=== PATIENT | female | born 1955 | race Caucasian/White ===

== ENCOUNTER 2017-03-03 10:14 | Observation (INO) | payer BC ==
[2017-03-03 10:27] VITALS: BMI 31.5
[2017-03-03 11:27] LABS: URINE APPEARANCE SLCLOUDY; URINE BILIRUBIN NEGATIVE (NEGATIVE); URINE BLOOD NEGATIVE (NEGATIVE); URINE COLOR STRAW; URINE GLUCOSE (UA) NEGATIVE (NEGATIVE); URINE KETONE NEGATIVE (NEGATIVE); URINE NITRITE NEGATIVE (NEGATIVE); URINE PROTEIN NEGATIVE (NEGATIVE); URINE UROBILINOGEN NEGATIVE E.U./dl (0.2-1.0)
--- NOTE | 2017-03-03 11:29 | PDOC ---
History of Present Illness - General History Source: Patient Exam Limitations: No Limitations - History of Present Illness Initial Comments: 03/03/17 12:12 The patient is a 61 year old female with a significant past medical history of TIA (20 years ago due to oral control), hypertension, and hypercholesterolemia, presenting to the Emergency Department with intermittent weakness for 5 days. The patient admits that she was moving out of her apartment on Tuesday, and started experiencing weakness which she describes as a heaviness to her left leg. She admits that the weakness has been progressively worse over the past 5 days. She states that his morning she started experiencing a heaviness to her left arm as well as tingling, pins and needles, to her left foot. She states that the tingling has resolved but that she still feels a heaviness to her left leg. She admits she is also walking with a limp. She also admits that her blood pressure was high this morning, though she is compliant with her medication. The patient denies headache, dizziness, or visual changes. Patient denies slurred speech. Patient denies nausea, vomiting, and diarrhea. Patient denies fever, cough, or chills. Patient denies neck pain, or back pain. PCP: Dr. Neal <Halima Soler - Last Filed: 03/03/17 14:27> - General History Source: Patient Exam Limitations: No Limitations <Juan Dudley - Last Filed: 03/03/17 14:51> - General Chief Complaint: Weakness Stated Complaint: leg weakness x 2 days Time Seen by Provider: 03/03/17 10:38 Past History <Halima Soler - Last Filed: 03/03/17 14:27> - Past Medical History Anemia: No Asthma: No Cancer: No Cardiac Disorders: No CVA: No COPD: No (SARCOIDOSIS) CHF: No Dementia: No Diabetes: No GI Disorders: Yes (COLON POLYPS, DIVERTICULOSIS, GERD, HIATAL HERNIA) Disorders: No HTN: Yes Hypercholesterolemia: Yes Liver Disease: No Seizures: No Thyroid Disease: No - Surgical History Cardiac Surgery: No Cholecystectomy: Yes (LAPAROSCOPIC) Lung Surgery: No Neurologic Surgery: No - Psycho/Social/Smoking Cessation Hx Anxiety: No Suicidal Ideation: No Smoking History: Never smoked Have you smoked in the past 12 months: No Information on smoking cessation initiated: No Hx Alcohol Use: No Drug/Substance Use Hx: No Substance Use Type: None Hx Substance Use Treatment: No <Juan Dudley - Last Filed: 03/03/17 14:51> - Past Medical History Allergies/Adverse Reactions: Allergies Allergy/AdvReac Type Severity Reaction Status Date / Time No Known Allergies Allergy Verified 03/03/17 10:28 Home Medications: Ambulatory Orders Atorvastatin Ca [Lipitor] 10 mg PO DAILY 10/23/15 Olmesartan Medoxomil [Benicar -] 20 mg PO DAILY 08/18/16 Review of Systems - Review of Systems Able to Perform ROS?: Yes Comments:: 03/03/17 12:12 CONSTITUTIONAL: Reported: + weakness, + high blood pressure No reported: Fever, Chills, Diaphoresis, Malaise, Loss of Appetite HEENT: No reported: Rhinorrhea, Nasal Congestion, Throat Pain, Throat Swelling, Difficulty Swallowing, Mouth Swelling, Ear Pain, Eye Pain, Visual Changes CARDIOVASCULAR: No reported: Chest Pain, Syncope, Palpitations, Irregular Heart Rate, Lightheadedness, Peripheral Edema RESPIRATORY: No reported: Cough, Shortness of Breath, SOB with Exertion, Orthopnea, Wheezing , Stridor, Hemoptysis GASTROINTESTINAL: No reported: Abdominal pain, Abdominal Distension, Nausea, Vomiting, Diarrhea, Constipation, Melena, Hematochezia GENITOURINARY: No reported: Dysuria, Frequency, Urgency, Hesitancy, Flank Pain, Genital Pain MUSCULOSKELETAL: No reported: Myalgia, Arthralgia, Joint Swelling, Back pain, Neck Pain SKIN: No reported: Rash, Itching, Pallor HEMATOLOGIC/IMMUNOLOGIC: No reported: Easy Bleeding, Easy Bruising, Lymphadenopathy, Frequent infections ENDOCRINE: No reported: Unexplained Weight Gain, Unexplained Weight Loss, Heat Intolerance , Cold Intolerance NEUROLOGIC: Reported: + weakness heaviness to left leg, + heaviness to left arm (resolved), + tingling to left foot (resolved) No reported: Headache, Vertigo, Lightheadedness, Seizure, Mental Status Changes , Incontinence PSYCHIATRIC: No reported: Anxiety, Depression <Halima Soler - Last Filed: 03/03/17 14:27> *Physical Exam - Vital Signs Last Vital Signs Temp Pulse Resp BP Pulse Ox 98.4 F 72 18 148/74 100 03/03/17 10:17 03/03/17 10:17 03/03/17 10:17 03/03/17 10:17 03/03/17 10:17 - Physical Exam Comments: 03/03/17 12:12 GENERAL: The patient is awake, alert, and fully oriented, Nontoxic - in no acute distress. HEAD: Normocephalic, atraumatic. EYES: extraocular movements intact, sclera anicteric, conjunctiva clear. ENT: Normal voice, Moist mucous membranes. NECK: Normal range of motion, supple LUNGS: Breath sounds equal, clear to auscultation bilaterally. No wheezes, no rhonchi, no rales. HEART: Regular rate and rhythm, normal S1 and S2 without murmur, rub or gallop. ABDOMEN: Soft, nontender, normoactive bowel sounds. No guarding, no rebound. . No CVA tenderness EXTREMITIES: Normal range of motion, no edema. No cords, erythema, or tenderness. PSYCH: Normal mood, normal affect. SKIN: Warm, Dry, normal turgor, NEURO: Mental status: The patient is oriented x3. Cranial nerves: Cranial nerves II through XII are intact Motor: The upper extremities are 5 over 5 in all muscle groups. The lower extremities are 5 over 5 in RLE, 5- on RLE (+drift) Sensation: Sensation is intact to light touch throughout. romberg negative Cerebellar: Ezgpeh-dcmkbl-ldie is normal in both upper extremities. Heel-knee- norris is normal in both lower extremities. rapid alternating movements are normal. Reflexes: 2+ and symmetric in the upper and lower extremities. Gait: abnormal gait <Halima Soler - Last Filed: 03/03/17 14:27> - Vital Signs Last Vital Signs Temp Pulse Resp BP Pulse Ox 98.4 F 72 18 148/74 100 03/03/17 10:17 03/03/17 10:17 03/03/17 10:17 03/03/17 10:17 03/03/17 10:17 <Juan Dudley - Last Filed: 03/03/17 14:51> Heart Score/ECG Review - ECG Impressions Comment:: 03/03/17 11:43 Twelve-lead EKG was performed and reviewed by me. There is normal sinus rhythm with a normal rate. rate of 62 The axis is normal. The intervals are normal. There is normal R wave progression There are no ST or T wave abnormalities. Impression: Normal twelve-lead EKG <Juan Dudley - Last Filed: 03/03/17 14:51> ED Treatment Course - LABORATORY CBC & Chemistry Diagram: 03/03/17 11:08 03/03/17 11:08 - ADDITIONAL ORDERS Additional order review: Laboratory Results 03/03/17 11:11 Urine Color Straw Urine Appearance Slcloudy Urine pH 6.0 Urine Protein Negative Urine Glucose (UA) Negative Urine Ketones Negative Urine Blood Negative Urine Nitrite Negative Urine Bilirubin Negative Urine Urobilinogen Negative Ur Leukocyte Esterase 2+ H Urine RBC 3 Urine WBC 8 Ur Epithelial Cells Moderate Urine Bacteria Rare Urine Mucus Rare 03/03/17 11:08 RBC 4.17 MCV 93.8 MCHC 34.5 RDW 13.1 MPV 7.9 Neutrophils % 72.2 D Lymphocytes % 19.6 D Monocytes % 5.7 Eosinophils % 1.8 Basophils % 0.7 - RADIOLOGY Radiology Studies Ordered: 03/03/17 13:33 Chest XRay As reviewed by Dr. Christian Duran IMPRESSION: No evidence of active pulmonary disease. 03/03/17 13:[address] As reviewed by Dr. Christian Duran IMPRESSION: No evidence of acute intracranial hemorrhage, edema, midline shift, mass effect, or skull fracture. No CT evidence of acute territorial infarction. <Halima Soler - Last Filed: 03/03/17 14:27> - LABORATORY CBC & Chemistry Diagram: 03/03/17 11:08 03/03/17 11:08 - RADIOLOGY Radiology Studies Ordered: Category Date Time Status HEAD CT WITHOUT CONTRAST [CT] Stat CT Scan 03/03/17 11:06 Ordered CHEST X-RAY PORTABLE* [RAD] Stat Radiology 03/03/17 11:07 Taken <Juan Dudley - Last Filed: 03/03/17 14:51> Medical Decision Making - Medical Decision Making 03/03/17 13:38 Dr. Lerma was called at his office at 1:38. Awaiting call back. 03/03/17 14:27 Dr. Lerma returned call and spoke to Dr. Dudley about the patient's care. <Halima Soler - Last Filed: 03/03/17 14:27> - Medical Decision Making 03/03/17 11:27 61y F hx of htn, hl, hx oF TIA in remote past presents with 4 days of L leg numbness/tingling and 'heaviness', and today noted to have some heaviness of her L arm. ON exam the pt noted to have drift of her L leg but otherwise intact exam. NIHSS = 1. exam otherwise unremarkable vitals normal suspect possible small cva will ck labs, ct head will discuss w/ neuro A portion of this note was documented by scribe services under my direction. I have reviewed the details of the note, within reason, and agree with the documentation with the following case summary and management plan written by me 03/03/17 14:[address] reviewed negative pt given ASA case dw dr. Lerma (neuro) agree with admisino for further management Will admit to the hospital service (covering dr. Mason) 03/03/17 14:34 03/03/17 14:51 case dw [employer] Meagan agree with admission for further management will admit to stroke unit under dr. mcpherson service Case discussed in detail with admitting physician including history, physical exam and ancillary studies. Admitting physician has assumed care for the patient, will follow all pending diagnostics and will complete the evaluation and treatment. <Juan Dudley - Last Filed: 03/03/17 14:51> *DC/Admit/Observation/Transfer - Attestations Scribe Attestion: 03/03/17 12:13 Documentation prepared by Halima Soler, acting as medical front desk specialist for Juan Dudley MD. <Halima Soler - Last Filed: 03/03/17 14:27> - Discharge Dispostion Admit: Yes <Juan Dudley - Last Filed: 03/03/17 14:51> Diagnosis at time of Disposition: Cerebrovascular accident (CVA) Qualifiers: CVA mechanism: unspecified Qualified Code(s): I63.9 - Cerebral infarction, unspecified - Discharge Dispostion Condition at time of disposition: Guarded - Referrals Referrals: Ted Neal MD [Primary Care Provider] - NIH Stroke Scale - Last Known Well Date/Time & Onset Date Last Known Well: 02/26/17 Time Last Known Well: 12:00 - Initial Evaluation Level of consciousness: Alert Ask patient the month and their age: Answers both correctly Ask patient to open & close eyes; make fist and let go: Obeys both correctly Best gaze (horizontal eye movement): Normal Visual field testing: No visual field loss Facial paresis (Show teeth/raise eyebrows/close eyes tight): Normal symmetrical movement Motor Function: Left Arm: Normal Motor Function: Right Arm: Normal (extends arm 90 (or 45) degrees for 10 seconds without drift Motor Function: Left Leg: Drift Motor Function: Right Leg: Normal (extends leg 30 degrees for 5 seconds without drift) Limb Ataxia: No ataxia Sensory(Use pinprick test arms,legs,trunk,face/side to side): Normal Best language (Describe picture, name items, read sentences): No Aphasia Dysarthria (read several words): Normal articulation Extinction and Inattention: No abnormality - Total Score NIH Stroke Scale Score: 1 <Juan Dudley - Last Filed: 03/03/17 14:51> tPA Exclusion Checklist 0-3hr - Time Elapsed Date last known well: 02/26/17 Time last known well: 12:00 Elaspsed time: 5 Day(s) and 2 Hour(s) and 50 Minutes - Thrombolytic Therapy Candidate Is the patient eligible for Thrombolytic Therapy?: No - Ineligibility reason(s) Reasons No tPA given: Outside of window - delayed arrival <Juan Dudley - Last Filed: 03/03/17 14:51>
[2017-03-03 11:37] LABS: URINE LEUK ESTERASE 2+ (NEGATIVE)
[2017-03-03 11:43] LABS: BASOPHIL 0.7 % (0-2.0); EOSINOPHIL 1.8 % (0-4.5); MCH 32.3 pg (25.7-33.7); MCHC 34.5 g/dl (32.0-36.0); MEAN CELL VOLUME 93.8 fl (80-96); MEAN PLT VOLUME 7.9 fl (7.5-11.1); NEUTROPHILS 72.2 % (42.8-82.8); PLATELET COUNT 228 K/MM3 (134-434); RDW 13.1 % (11.6-15.6); WHITE BLOOD COUNT 8.2 K/mm3 (4.0-10.0)
[2017-03-03 11:48] LABS: URINE BACTERIA RARE /hpf (NONE SEEN); URINE MUCUS RARE; URINE RBC 3 /hpf (0-3); URINE WBC 8 /hpf (3-5)
[2017-03-03 12:02] LABS: INR 1.05 (0.82-1.09); PROTHROMBIN TIME (PATIENT) 11.6 SEC (9.98-11.88)
[2017-03-03 12:08] LABS: ALBUMIN 3.9 g/dl (3.4-5.0); ANION GAP 9 (8-16); BILIRUBIN,TOTAL 0.6 mg/dL (0.2-1.0); CALCIUM 9.2 mg/dL (8.5-10.1); CO2 27 mmol/L (21-32); COCKROFT - GAULT 74.205; CREATININE 0.9 mg/dL (0.55-1.02); GLUCOSE,RANDOM 103 mg/dL (74-106); MAGNESIUM 2.1 mg/dL (1.8-2.4); SGOT/AST 32 U/L (15-37); SGPT/ALT 36 U/L (12-78); TOT PROT 7.5 g/dl (6.4-8.2)
[2017-03-03 12:09] LABS: ALK PHOS 64 U/L (45-117)
[2017-03-03] MEDS ORDERED: ASPIRIN 81 MG CHEWABLE TABLETS PO ONE (13:35)
[2017-03-03] MEDS ORDERED: ASPIRIN 81 MG CHEWABLE TABLETS ONE (13:40)
--- NOTE | 2017-03-03 15:31 | HP ---
Admitting History and Physical - Primary Care Physician PCP: Ted Neal - Admission Chief Complaint: Left upper and lower extremity weakness History of Present Illness: HPI: This 61 year old female with history of HTN, HLD, TIA 20 years ago presented to the ED with worsening LLE weakness and new onset LUE weakness, heaviness and L foot numbness. Patient reports this past weekend she was moving and stressed. On Tuesday she started feeling nasal congestion and took mucinex 600mg. Two days later she experienced LLE weakness. Today, while at work the weakness in her LLE increased and she started feeling LUE weakness and heaviness. She denies unstable gait, leg buckling, burning, tingling. She does admit to stopping her ASA recently after hearing a news briefing it doesn't really help. 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 sob, CP, nausea, vomiting, FERRER, dizziness, blurry vision. History Source: Patient Limitations to Obtaining History: No Limitations - Past Medical History [employer]: Yes: TIA Cardiovascular: Yes: HTN, Hyperlipdemia - Smoking History Smoking history: Never smoked Have you smoked in the past 12 months: No - Alcohol/Substance Use Hx Alcohol Use: No History of Substance Use: reports: None - Social History Usual Living Arrangement: Yes: With Spouse ADL: Independent Occupation: Works in school Home Medications - Allergies Allergies/Adverse Reactions: Allergies Allergy/AdvReac Type Severity Reaction Status Date / Time No Known Allergies Allergy Verified 03/03/17 10:28 - Home Medications Home Medications: Ambulatory Orders Atorvastatin Ca [Lipitor] 10 mg PO DAILY 10/23/15 Olmesartan Medoxomil [Benicar -] 20 mg PO DAILY 08/18/16 Review of Systems - Review of Systems Constitutional: reports: No Symptoms Eyes: reports: No Symptoms HENT: reports: No Symptoms Neck: reports: No Symptoms Cardiovascular: reports: No Symptoms Respiratory: reports: No Symptoms Gastrointestinal: reports: No Symptoms Genitourinary: reports: No Symptoms Breasts: reports: No Symptoms Reported Musculoskeletal: reports: No Symptoms Integumentary: reports: No Symptoms Neurological: reports: Numbness (L foot), Weakness (Left upper and lower extremity) Hematology/Lymphatic: reports: No Symptoms Psychiatric: reports: No Symptoms Physical Examination Vital Signs: Vital Signs Temperature 98.4 F 03/03/17 10:17 Pulse Rate 72 03/03/17 10:17 Respiratory Rate 18 03/03/17 10:17 Blood Pressure 148/74 03/03/17 10:17 O2 Sat by Pulse Oximetry (%) 100 03/03/17 10:17 Constitutional: Yes: Well Nourished, Calm Eyes: Yes: Conjunctiva Clear HENT: Yes: Atraumatic Neck: Yes: Supple Cardiovascular: Yes: Regular Rate and Rhythm, S1, S2 Respiratory: Yes: Regular, CTA Bilaterally Gastrointestinal: Yes: Normal Bowel Sounds, Soft Renal/: Yes: WNL Musculoskeletal: Yes: Muscle Weakness (LUE, LLE) Edema: Yes Edema: LLE: Trace Peripheral Pulses WNL: Yes Integumentary: Yes: WNL Neurological: Yes: Alert, Oriented, Cran Nerves II-XII Intact, Numbness (left foot), Weakness (LLE, LUE) Psychiatric: Yes: Alert, Oriented Imaging - Results Chest X-ray: Report Reviewed, Image Reviewed (platelike atelectasis) Cat Scan: Report Reviewed (no acute hemorrhage, edema, midline shift, no acute territorial infarction) Problem List - Problems (1) HTN (hypertension) Code(s): I10 - ESSENTIAL (PRIMARY) HYPERTENSION (2) HLD (hyperlipidemia) Code(s): E78.5 - HYPERLIPIDEMIA, UNSPECIFIED (3) TIA (transient ischemic attack) Code(s): G45.9 - TRANSIENT CEREBRAL ISCHEMIC ATTACK, UNSPECIFIED Assessment/Plan Assessment: 61 year old female with history of HTN, HLD, TIA 20 years ago admitted with worsening LLE weakness and new onset LUE weakness, heaviness and L foot numbness. Plan: 1. CVA vs TIA - CT head negative - MRI brain - ECHO - Carotid dopplers - ASA daily - Continue lipitor and check lipid panel - PT eval - Check A1c, Vit b12, TSH - Neurology consult 2. HTN - Controlled - Continue Benicar 3. HLD - Continue lipitor 4. Asymptomatic pyuria - UA +2 LE, 8 wbc - Pt denies active complaints, no infectious signs - Will def abx at this time Visit type - Emergency Visit Emergency Visit: Yes ED Registration Date: 03/03/17 Care time: The patient presented to the Emergency Department on the above date and was hospitalized for further evaluation of their emergent condition. - New Patient This patient is new to me today: Yes Date on this admission: 03/03/17 - Critical Care Critical Care patient: No
[2017-03-03] MEDS ORDERED: PNEUMOC 13-VAL CONJ-DIP CRM/PF 0.5 ML DISP.SYRIN IM ONE (15:57)
[2017-03-03] MEDS ORDERED: PNEUMOCOCCAL 23 VACCINE 0.5 ML VIAL IM ONE (16:15)
[2017-03-03] MEDS ORDERED: VALSARTAN 80 MG TABLET (UD) ONE (16:44)
[2017-03-03] MEDS: VALSARTAN 160 MG TABLET (UD) PO SCH (16:49)
[2017-03-03] MEDS ORDERED: diazePAM 5 MG TABLET PO ONE (19:03)
--- NOTE | 2017-03-03 19:08 | CON.NEURO ---
Consult - Past Medical History [employer]: Yes: TIA Cardio/Vascular: Yes: HTN, Hyperlipdemia ...: No - Alcohol/Substance Use Hx Alcohol Use: No History of Substance Use: reports: None - Smoking History Smoking history: Never smoked Have you smoked in the past 12 months: No - Social History ADL: Independent Occupation: Works in school Home Medications - Allergies Allergies/Adverse Reactions: Allergies Allergy/AdvReac Type Severity Reaction Status Date / Time No Known Allergies Allergy Verified 03/03/17 10:28 - Home Medications Home Medications: Ambulatory Orders Atorvastatin Ca [Lipitor] 10 mg PO DAILY 10/23/15 Olmesartan Medoxomil [Benicar -] 20 mg PO DAILY 08/18/16 Physical Exam-Neuro Vital Signs: Vital Signs Temperature 99.1 F 03/03/17 17:40 Pulse Rate 69 03/03/17 17:40 Respiratory Rate 20 03/03/17 17:40 Blood Pressure 129/81 03/03/17 17:40 O2 Sat by Pulse Oximetry (%) 93 L 03/03/17 17:41 Labs: INR, PTT INR 1.05 (0.82-1.09) 03/03/17 11:08 NIH Stroke Scale - Total Score NIH Stroke Scale Score: 0 Imaging - Results Cat Scan: Report Reviewed Assessment/Plan left leg weakness and left foot numbness x two days 61 year old female hsitory of HTN AND Hyperlipidemia. She had tia 20 years ago, when she had trouble swallowing and left sided got numb. She was suppose to take aspirin and recenty stopped taking aspirin. She denies any difficulty swallowing, talking or dysphagia or significant motor weakness. 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 Vital Signs Temperature 98.4 F 03/03/17 10:17 Pulse Rate 72 03/03/17 10:17 Respiratory Rate 18 03/03/17 10:17 Blood Pressure 148/74 03/03/17 10:17 O2 Sat by Pulse Oximetry (%) 100 03/03/17 10:17 Neurological Examination Alert oriented x 3 CN all intact, pupils bilateral reactive no facial asymmetry no pronator drift and there is mild left lower extremity weaknes sensation is normal( though she feels funny on left leg and arm is getting better Ct scan reviewed Assessemtn- Right mca stroke , risk factor is previous tia, htn and hlp Plan continue aspirin as she recently stopped increase statin to 80 mg once a day mri of brain and carotid ultrasound pt, swallow and stroke education, dvt prophylaxis Thanks for consult bree parson MD
[2017-03-03] MEDS ORDERED: ATORVASTATIN CA 10 MG TABLET (FP) PO SCH (22:00)
[2017-03-03] MEDS ORDERED: ATORVASTATIN CA 80 MG TABLET (FP) PO SCH (22:00)
[2017-03-04 06:50] LABS: BASOPHIL 0.7 % (0-2.0); EOSINOPHIL 4.2 % (0-4.5); MCH 32.1 pg (25.7-33.7); MEAN CELL VOLUME 94.4 fl (80-96); MEAN PLT VOLUME 8.2 fl (7.5-11.1); NEUTROPHILS 47.2 % (42.8-82.8); PLATELET COUNT 214 K/MM3 (134-434); WHITE BLOOD COUNT 5.3 K/mm3 (4.0-10.0)
[2017-03-04 07:19] LABS: CHOLESTEROL 120 mg/dL (50-200); COCKROFT - GAULT 74.205; CREATININE 0.9 mg/dL (0.55-1.02); SGOT/AST 20 U/L (15-37); SGPT/ALT 29 U/L (12-78)
[2017-03-04 07:21] LABS: ALBUMIN 3.3 g/dl (3.4-5.0); ANION GAP 9 (8-16); CALCIUM 8.7 mg/dL (8.5-10.1); CO2 26 mmol/L (21-32); GLUCOSE,RANDOM 107 mg/dL (74-106)
[2017-03-04 07:29] LABS: ALK PHOS 52 U/L (45-117); BILIRUBIN,TOTAL 0.8 mg/dL (0.2-1.0); LDL CHOLESTEROL (ONLY SJRH) 60 mg/dL (5-100); THYROID STIMULATING HORMONE 0.92 uIU/ml (0.358-3.74); TOT PROT 6.6 g/dl (6.4-8.2)
[2017-03-04] MEDS: VALSARTAN 160 MG TABLET (UD) PO SCH (09:50)
[2017-03-04] MEDS ORDERED: ENOXAPARIN NA (PORCINE) 40 MG/0.4 ML DISP.SYRIN SQ SCH (10:00)
[2017-03-04] MEDS ORDERED: ASPIRIN COATED 81 MG TABLET.EC PO SCH (10:00)
[2017-03-04 14:56] VITALS: BP 132/72; PULSE 68; TEMP 98.4
--- NOTE | 2017-03-04 15:44 | DS ---
Physical Examination Vital Signs: Vital Signs Temperature 98.4 F 03/04/17 14:00 Pulse Rate 68 03/04/17 14:00 Respiratory Rate 20 03/04/17 14:00 Blood Pressure 132/72 03/04/17 14:00 O2 Sat by Pulse Oximetry (%) 96 03/04/17 13:00 Findings/Remarks: General: NAD, A&Ox3 Lungs: CTA bilaterally Heart: RRR, S1S2 Abd: Soft, non-tender, non-distended. Normoactive bowel sounds Ext: Warm, well-perfused. 2+DP/PT bilaterally Neuro: CN 2-12 intact. 5/5 muscle strength b/l upper and lower extremities Labs: CBC, BMP 03/04/17 05:35 03/04/17 05:35 Discharge Summary Reason For Visit: CVA Current Active Problems CVA (cerebral vascular accident) (Acute) HLD (hyperlipidemia) (Acute) HTN (hypertension) (Acute) TIA (transient ischemic attack) (Acute) Hospital Course: UA with 2+ leuks, no urinary complaints Condition: Improved - Instructions Diet, Activity, Other Instructions: Please return to the ED with new, persistent, or worsening symptoms. Please follow-up with neurology within 2-3 days. Please follow-up with you pcp within 1 week to have your HgbA1c checked. It was 6.8 here. As discussed you MUST start lifestyle and diet modifications. Start 30 minutes of exercise per day. Decrease your sugar intake. Referrals: Horace Lerma MD [Staff Physician] - (Please follow-up with neurology within 2 -3 days ) Ted Neal MD [Primary Care Provider] - 1 Week Disposition: HOME - Home Medications Comprehensive Discharge Medication List: Ambulatory Orders Olmesartan Medoxomil [Benicar -] 20 mg PO DAILY 08/18/16 Aspirin Coated [Ecotrin -] 81 mg PO DAILY #30 tab 03/04/17 Atorvastatin Ca [Lipitor] 80 mg PO HS #30 tablet 03/04/17
--- NOTE | 2017-03-06 15:39 | EKG ---
Test Reason : Blood Pressure : / mmHG Vent. Rate : 062 BPM Atrial Rate : 062 BPM P-R Int : 154 ms QRS Dur : 080 ms QT Int : 442 ms P-R-T Axes : 062 078 057 degrees QTc Int : 448 ms NORMAL SINUS RHYTHM NORMAL ECG WHEN COMPARED WITH ECG OF 23-OCT-2015 10:43, NO SIGNIFICANT CHANGE WAS FOUND Confirmed by XIAO DYER MD ([id number]) on 03/06/2017 3:39:29 PM Referred By: Confirmed By:XIAO DYER MD
== END 2017-03-04 18:00 | disposition home or self-care (01) ==
LOC: JER 10:14 → JERBED 14:51 → INTOOBSV 14:51 → UNDOADMOB 14:51 → JERBED 16:08 → J4S 17:25
PROVIDERS: ADMIT Internal Medicine; ATTEND Registered Nurse
PROC: 3E013GC Introduction of Other Therapeutic Substance into Subcutaneous Tissue, Percutaneous Approach (ICD-10-PCS; principal; 2017-03-03)
PROC: 3E0234Z Introduction of Serum, Toxoid and Vaccine into Muscle, Percutaneous Approach (ICD-10-PCS; 2017-03-03)
DX: I63.331 Cerebral infarction due to thrombosis of right posterior cerebral artery (principal); I10 Essential (primary) hypertension; E78.5 Hyperlipidemia, unspecified
CPT/HCPCS: 36415; 70450-TC; 70551-TC; 71010-TC; 80053; 80061; 81003; 81015; 82607; 83036; 83721; 83735; 84443; 85025; 85610; 93005; 93010; 93306-TC; 93880-TC; 97116-GP; 97161; 99285-25; G0378

== ENCOUNTER 2018-11-22 06:22 | Day surgery (SDC) | payer BC ==
[2018-11-21 12:15] VITALS: BMI 30.4
[2018-11-22 08:42] VITALS: TEMP 98.5
[2018-11-22 09:08] VITALS: PULSE 62
[2018-11-22 11:05] VITALS: BP 100/56
--- NOTE | 2018-11-23 11:43 | PATH ---
Surgical Pathology Report Patient Name: JACY COOK [facility]. Rec. #: [id number] /Age/Gender: 1955 (Age: 63) / F Account: [id number] Location: [facility]-ENDOSCOPY Taken: 11/22/2018 Received: 11/22/2018 Reported: 11/23/2018 Physicians: Tavares Head M.D. Specimen(s) Received TRANSVERSE COLON POLYP BIOPSY Clinical History History of colonic polyp, screening Postoperative diagnosis: Diverticulosis, colon polyp Final Diagnosis TRANSVERSE COLON, POLYP, BIOPSY: POLYPOID COLONIC MUCOSA WITH PROMINENT LYMPHOID AGGREGATE. Electronically Signed Kendra Cohn M.D. Gross Description Received in formalin, labeled "transverse colon polyp biopsy" are 2 rangel, irregular portions of soft tissue measuring 0.2 and 0.3 cm. in greatest dimension. The specimens are submitted in toto in one cassette. /11/22/2018 saudi11/22/2018
== END 2018-11-22 10:55 | disposition home or self-care (01) ==
LOC: JASU-ENDO 06:22
PROVIDERS: ATTEND Internal Medicine Gastroenterology
PROC: 0DBL8ZX Excision of Transverse Colon, Via Natural or Artificial Opening Endoscopic, Diagnostic (ICD-10-PCS; principal; 2018-11-22 08:00)
DX: Z12.11 Encounter for screening for malignant neoplasm of colon (principal); Z86.010 Personal history of colon polyps; D12.3 Benign neoplasm of transverse colon; K57.30 Diverticulosis of large intestine without perforation or abscess without bleeding
CPT/HCPCS: 88305-TC

== ENCOUNTER 2024-01-31 04:43 | Day surgery (SDC) | payer OTHER, BC ==
[2024-01-27 15:30] VITALS: BMI 27.2
[2024-01-31 08:41] VITALS: TEMP 98.6
[2024-01-31 09:18] VITALS: PULSE 60
[2024-01-31 09:32] VITALS: BP 115/78; RESP 18
== END 2024-01-31 09:55 | disposition home or self-care (01) ==
LOC: JASU-ENDO 04:43
PROVIDERS: ATTEND Internal Medicine Gastroenterology
PROC: 0DBK8ZX Excision of Ascending Colon, Via Natural or Artificial Opening Endoscopic, Diagnostic (ICD-10-PCS; 2024-01-31)
PROC: 0DBH8ZX Excision of Cecum, Via Natural or Artificial Opening Endoscopic, Diagnostic (ICD-10-PCS; principal; 2024-01-31 08:00)
DX: Z12.11 Encounter for screening for malignant neoplasm of colon (principal); K63.5 Polyp of colon; K57.30 Diverticulosis of large intestine without perforation or abscess without bleeding; K64.8 Other hemorrhoids; Z86.010 Personal history of colon polyps
CPT/HCPCS: 82962; 88305-TC